=== PATIENT | male | born 2000 | race Hispanic/Latino ===

== ENCOUNTER 2023-10-25 11:45 | Emergency (ER) | payer OTHER, SELFPAY ==
[2023-10-25] MEDS ORDERED: Lidocaine/Transparent Dressing 1 EACH KIT ONE (12:05)
== END 2023-10-25 15:53 | disposition home or self-care (01) ==
LOC: ERS 11:45
DX: S61.412A Laceration without foreign body of left hand, initial encounter (principal); W27.8XXA Contact with other nonpowered hand tool, initial encounter; Y99.0 Civilian activity done for income or pay
CPT/HCPCS: 12001; 99282